=== PATIENT | female | born 1930 | race Caucasian/White ===

== ENCOUNTER 2019-06-05 12:40 | Inpatient (IN) | payer MEDICARE, OTHER ==
[~2019-06-05] VITALS: Ht 160 cm; Wt 55.1 kg
[~2019-06-05 12:40] MED LIST: ASPIRIN 81M81 MG/TA2 PO; CALCIUM 600 PLU1 TAB PO; CALCIUM CARBON650 M2 PO; CENTRUM SILVER1 TAB PO; LIPITOR 10MG10 MG PO; PRINIVIL20 MG PO; TUMS ULTRA ST1000 MG PO; TYLENOL 325MG325 MG PO; ZANTAC 150MG T150 MG PO
[2019-06-05 13:15] VITALS: BP 150/51; PULSE 79; TEMP 98.5
--- NOTE | 2019-06-05 15:30 | NUR ---
Report received from KORI Andrade on medical. Pt arrived to room 333 after she ate lunch on medical unit. Pt's family here. Began therapies. Requested pain med, too soon, discussed with pt/family. Saulo, PT with PT.
[2019-06-05] MEDS ORDERED: NORCO 325 MG-51 TAB PO (15:32)
[2019-06-05] MEDS ORDERED: MELATONIN3 M1 PO (15:34)
--- NOTE | 2019-06-05 19:12 | NUR ---
Edu pt about requesting pain meds, as it is not scheduled, verbalized understanding. Pt wants time to look at forms to sign and show her daughter tomorrow, left in room. Removed IV from RFA. Pt did not eat much supper. Report to KORI Vega. Pt in chair with call lt in reach.
--- NOTE | 2019-06-06 00:47 | NUR ---
Patient up slowly to the bathroom CGA with walker. Has some anxiousness with activity and new situations but is alert and oriented x 4. Manages all toileting tasks slowly. Grimaces and limps right with movements/twists at times instead of stepping. Rests self slowly back in bed. Has been resting since HS meds reviewed and given earlier.
--- NOTE | 2019-06-06 02:30 | NUR ---
Patient rests with eyes closed. Respirations with ease.
[2019-06-06 04:59] VITALS: BP 156/66; PULSE 82; TEMP 97.9
--- NOTE | 2019-06-06 05:00 | NUR ---
Patient awake and up slowly to the bathroom and rests self back in bed. Patient states not much pain this am. [place] given to prevent increase in pain for the am.
--- NOTE | 2019-06-06 09:05 | NUR ---
Report from KORI Vega. Pt bedresting this morning, took pills whole with thin liquid, glasses in place, hearing aids at home, own teeth. A&O, pleasant. Denies numbness/tingling, or dizziness, no pain at rest.
[2019-06-06 16:45] VITALS: BP 158/78; PULSE 89; TEMP 98.3
[2019-06-07 05:23] VITALS: BP 158/70; PULSE 79; TEMP 98.4
--- NOTE | 2019-06-07 09:48 | NUR ---
Patient ate all her breakfast this morning. Attending morning therapies at this time. Patient was given prn pain meds prior to therapies with pain 5/10. Will continue to monitor.
--- NOTE | 2019-06-07 14:52 | NUR ---
NATHALIE met with patient and , as patient is new to inpatient rehab. NATHALIE explained her role with the IPR team and reported that a social science analyst will be following during her entire stay in the rehab unit. Prior to hospitalization, patient lived independently at home with and did nto require any DME or home health services. Patient does have a cane and yessica-walker at home but did not use them often. Patient's PCP is Dr Shellie Singer and she obtains medications from [facility] in [place]. NATHALIE will continue to follow.
--- NOTE | 2019-06-07 17:00 | NUR ---
Patient attended all therapies today. Tolerated diet well. Interacted with staff well this shift. Assisted with transferring patient to bathroom multiple times today and she was a one assist with her walker. This nurse needed to stand right outside the bathroom because patient would use her call light, but she would wipe herself, pull clothes up and be standing up with her walker at the door instead of waiting for staff to come before she got up. Educated patient each time on safety and importance of using call light and waiting for staff to arrive before getting up. Patient forgetful at times. Patient's visited this afternoon.
[2019-06-07 17:02] VITALS: BP 177/70; PULSE 89; TEMP 98.2
--- NOTE | 2019-06-07 20:16 | NUR ---
At approximately 7:30 PM this evening a cleaning lady reported to this nurse that the patient had used her call light four times and spoke with a person. They said they would be in to get her, but no one showed up. When this nurse arrived to assist the patient she was very upset that this nurse had not showed up to help her. This nurse tried to communicate that she was not the person that the patient assumed was her when using the call light. Patient was so upset and would not talk with this nurse. This incident was reported to the Special Events Assistant.
[2019-06-08 00:04] VITALS: BP 165/58; PULSE 73; TEMP 97.9
--- NOTE | 2019-06-08 00:30 | NUR ---
UA SENT TO LAB.
--- NOTE | 2019-06-08 00:50 | NUR ---
GAVE 1ST DOSE OF METOPROLOL 25MG. SYS BP 165.
--- NOTE | 2019-06-08 01:22 | NUR ---
UA RESULTS CONTAMINATED. WILL OBTAIN A SECOND UA.
[2019-06-08 05:20] VITALS: BP 175/68; PULSE 74; TEMP 98.1
--- NOTE | 2019-06-08 05:27 | NUR ---
SBP THIS AM STILL ELEVATED 175. DENIES PAIN. RESTING IN BED.
--- NOTE | 2019-06-08 06:48 | NUR ---
SLEEPING CAR SERVICE ATTENDANT TRANSFERRED PT TO RECLINER AFTER VOIDING. PT REQUESTED PAIN MEDICATIONS. SEE MAR. PT CALM AND PLEASANT THIS AM. CHAIR ALARM SET.. CALL LIGHTIN REACH.
--- NOTE | 2019-06-08 09:00 | NUR ---
PT TOOK AM MEDS WELL THIS MORNING. SHE WAS WORKING WITH OT AT THE SINK AND HAD JUST FINISHED WITH HER SHOWER. PT DID WELL. PT WAS SEEN LATER AMBULATING THE HALLWAYS WITH GAIT BELT, WALKER AND PT TO GYM. GAIT STEADY AND STRONG.
[2019-06-08 16:00] VITALS: BP 160/90; PULSE 79; TEMP 98.3
--- NOTE | 2019-06-08 20:00 | NUR ---
PT GETTING READY FOR BED. AMB TO BR WITH WALKER. HAVING MUCH PAIN. VOIDED W/O DIFFICULTY. HAS SOME STRESS INCONTINENCE. WEARS HER OWN THIN PANTYLINERS. PT ABLE TO LIFT LEG INTO BED. REFUSES SCDS. ENC FREQUENT LEG EXERCISES. PT ALERT AND ORIENTED. FORGETFUL AT TIMES. HAS A FRAGILE AFFECT. SEE MAR FOR PAIN MED GIVEN. CALL LIGHT IN REACH. BED ALARM SET.
[2019-06-09 04:39] VITALS: BP 152/59; PULSE 98; TEMP 98
--- NOTE | 2019-06-09 05:59 | NUR ---
HAD INTERMITTENT SLEEP LAST NIGHT. ASSISTED TO BR WITH WALKER. LESS UNSTEADY THIS AM. DENIES NEED FOR PAIN MED THIS AM. RETURNED TO BED FOR MORE SLEEP. CALL LIGHT IN REACH. BED ALARM SET.
--- NOTE | 2019-06-09 08:01 | NUR ---
Assessment completed, alert/oriented, vital signs stable, report mild-moderate pain in right hip/pelvis, we have repositioned for comfort at this time, she is sitting up eating breakfast, morning meds given as scheduled, she denies needs at this time
[2019-06-09 17:59] VITALS: BP 149/59; PULSE 98; TEMP 97.6
--- NOTE | 2019-06-09 20:14 | NUR ---
ASSISTED PT TO BR W/ WALKER. VOIDED. INDEPENT FOR TOILETING TASK. HAS SOME STRESS INCONT. TOOK WALK IN HALLWAY. VRBALIZES FEELS LIKE A PRISIONER WITH THE ALARMS. VERBALIZES INSISTANCE TO GO HOME AND WILL TALK TO TOMORROW. BACK TO ROOM TO RECLINER. CHAIR ALARM SET. CALL LIGHT IN REACH.
--- NOTE | 2019-06-09 22:28 | NUR ---
PT CALLED ANIMAL CAREGIVER EARLIER. REPORTED WANTED MORE PAIN MED. CANT SLEEP. REMINDER RATIONALE FO TAKING PAIN MED. CHECKED ON PT. PT SLEEPING.
[2019-06-10 04:21] VITALS: BP 148/53; PULSE 59; TEMP 97.7
--- NOTE | 2019-06-10 06:44 | NUR ---
ASSISTED TO BR WITH WALKER. STEADY GAIT THIS AM. RETURNED TO RECLINER. CALL LIGHT IN REACH. CHAIR ALARM SET.
--- NOTE | 2019-06-10 08:24 | NUR ---
Report to KORI Tobin, that pt is confused and had loss of balance in BR. Pt states she has not seen a doctor. Pt reports she wants to go home, when nurse offered advice, pt continued to talk over nurse. Pt in chair, call lt in reach.
--- NOTE | 2019-06-10 12:40 | NUR ---
Pt in chair for lunch, Dr. Robbins was in to see her, pt states she was not impressed with him, when asked why she said that he deferred her discharge to therapy's recommendation- this nurse asked if pt remembered that this is what this nurse informed her this morning, pt had forgotten. Rogers for pain prior to last PT session.
--- NOTE | 2019-06-10 14:44 | NUR ---
Pt sitting in recliner, male visitor and doctor in room. Made Mod I in [place]/ [place] this afternoon.
--- NOTE | 2019-06-10 15:33 | NUR ---
Visited w/ pt, , & daughter about d/c plans for 06/12/19. Informed them the team is recommending outpatient PT & inquired where she would like to do that. She told SW she would like to do it at the [facility] in [place]. They had questions about follow up appointments which SW answered. Pt also inquired about wanting a walker. Asked her if she wanted to get it here in [place] or up closer to home. She decided on [place].
[2019-06-10 16:11] VITALS: BP 124/62; PULSE 83; TEMP 97.6
--- NOTE | 2019-06-10 19:27 | NUR ---
Report to KORI Coats. Pt mod I in rm, sitting in chair.
--- NOTE | 2019-06-10 20:30 | NUR ---
Shift assessment complete. Patient ambulating in room with walker, independently. States 4/10 back pain while sitting. Prn pain medication given (ultram). Explained the difference between ultram and norco. Patient asked appropriate questions, and is agreeable with plan. Patient in bed for the night and states she would not like to be disturbed if she is sleeping. Denies further needs at this time. Will continue to monitor.
[2019-06-10 20:33] VITALS: BP 152/76; PULSE 96
--- NOTE | 2019-06-11 00:49 | NUR ---
Patient up in BR, independently, with walker. States, pain is "ok." Declines pain medication. Will continue to monitor.
[2019-06-11 05:42] VITALS: BP 131/89; PULSE 78; TEMP 98.2
--- NOTE | 2019-06-11 05:53 | NUR ---
Patient in bed, awake. States, 5/10 pain, and that she just feels "sore." Prn pain medication given. Patient is up for the day, independent with walker. Denies further needs at this time. Will continue to monitor.
--- NOTE | 2019-06-11 09:29 | NUR ---
Contacted [facility] & spoke w/ Guerline. Ordered a walker w/ front wheels w/ request for delivery by 06/12/19. Faxed following information: face sheet, script, & notes.
--- NOTE | 2019-06-11 09:46 | NUR ---
Visited w/ pt about d/c plans for 06/12/19. Pt continues to look forward to returning home. Informed her again we will make her first outpatient PT appointment. Informed her the r/walker was ordered from [facility] & will be delivered to her room by tomorrow, 06/12/19. Asked if she has any other questions/concerns at this time, which she did not. Reviewed IM from [employer], which pt stated she understood & signed the form.
--- NOTE | 2019-06-11 10:36 | NUR ---
Report from KORI Coats. Pt fahad mod I in rm with walker, to chair for breakfast, eats small amounts, states she had a wonderful night, went to bed around 8:30 pm and slept well (seems to fahad Ultram well). Report from night nurse that pt was not confused, was pleasant. Much improved affect today. Left message to schedule OP PT with [facility].
--- NOTE | 2019-06-11 12:50 | NUR ---
Pt fahad mod I in rm well, ate little of lunch: most of hamburger amelia and some mashed potatoes. Ultram prior to last therapy session.
--- NOTE | 2019-06-11 15:48 | NUR ---
Pt states to HUNTER that pain level is 0/10.
[2019-06-11 18:30] VITALS: BP 145/57; PULSE 81; TEMP 98.1
--- NOTE | 2019-06-11 19:31 | NUR ---
Sitting in recliner. Independent in room with walker. Assessment completed. Reports 12/26. Requested PRN tramadol. Provided to patient. Denies other needs at this time. Call light in reach.
--- NOTE | 2019-06-11 23:39 | NUR ---
Resting in bed. Denies needs. Denies pain at this time. Call light in reach.
--- NOTE | 2019-06-12 04:03 | NUR ---
Resting in bed. Denies needs. Call light in reach.
[2019-06-12 06:03] VITALS: BP 148/59; PULSE 80; TEMP 98.2
--- NOTE | 2019-06-12 06:21 | NUR ---
Patient had uneventful night. Provided with PRN tramadol this AM for right hip pain with ambulation. 01/25 when pain is present. Denies other needs at this time. Call light in reach.
--- NOTE | 2019-06-12 06:45 | NUR ---
Report given to KORI Trejo
--- NOTE | 2019-06-12 08:39 | NUR ---
Pt is awake and A/Ox4. She denies pain at this time. She is up independently with her walker in room. Pt aware of discharge plan for later today. Denies any other needs.
[2019-06-12] MEDS ORDERED: LOPRESSOR 225 MG/TAB PO (10:56)
[2019-06-12] MEDS ORDERED: ULTRAM 50MG TAB50 MG PO (10:58)
--- NOTE | 2019-06-12 11:32 | NUR ---
Initial visit; Patient thanked Cryogenics Repairer for stopping and visiting. She is preparing to go home and is feeling ready. She states that she has a good support system and thanked Cryogenics Repairer for keeping her in her prayers.
--- NOTE | 2019-06-12 13:46 | NUR ---
Pt was discharged home from [facility]. All discharge paperwork and instructions was reviewed, questions answered. New prescriptions given. Pt was escorted out of facility by staff.
--- NOTE | 2019-06-14 14:34 | NUR ---
Discharge FIM scores for 05/11/19 were reviewed by the team. Since there were no scores for bladder & bowel, the team determined the scores should be 6, as pt wear a pad for stress incontinence w/out incontinence & was able to change it herself & was able to manage her bowels w/ meds & w/out incontinence. Shawanda Adler, PD
== END 2019-06-12 13:46 | disposition home or self-care (01) | DRG 561 ==
PROVIDERS: ADMIT Internal Medicine
DX: S32.9XXD Fracture of unspecified parts of lumbosacral spine and pelvis, subsequent encounter for fracture with routine healing (principal); W18.30XD Fall on same level, unspecified, subsequent encounter; I10 Essential (primary) hypertension; E78.5 Hyperlipidemia, unspecified; D72.829 Elevated white blood cell count, unspecified; Z91.81 History of falling; Z79.82 Long term (current) use of aspirin; Z66 Do not resuscitate
CPT/HCPCS: 99231-AI; 99232-AI; 99239